=== PATIENT | female | born 1990 | race African-American/Black ===

== ENCOUNTER 2022-07-04 13:20 | Emergency (ER) | payer OTHER, SELFPAY ==
[2022-07-04] VITALS (10 sets, daily range): BP systolic 116–148; BP diastolic 58–85; PULSE 102–123; RESP 20–28; TEMP 37.7; O2SAT 96–100; BMI 44.6
--- NOTE | 2022-07-04 13:34 | DI.RAD.S_ITS ---
PROCEDURE: XR CHEST 1V INDICATIONS: suspected sepsis TECHNIQUE: One view of the chest was acquired. COMPARISON: None. FINDINGS: Surgical changes and devices: None. Lungs and pleura: Lungs are clear. No pleural effusions or pneumothorax. Mediastinum: Mediastinal contours appear normal. There is mild cardiomegaly. Bones and chest wall: No suspicious bony lesions. Overlying soft tissues appear unremarkable. IMPRESSION: Mild cardiomegaly. No acute pulmonary findings. Dictated by: Erlinda Lombardo M.D. on 07/04/2022 at 15:31 Approved by: Erlinda Lombardo M.D. on 07/04/2022 at 15:31
[2022-07-04] MEDS: SODIUM CHLORIDE 0.9% 1,000 ML 1000 ML IV (13:53)
[2022-07-04] MEDS: ONDANSETRON 4 MG/2 ML INJ IV (13:53)
[2022-07-04 13:55] LABS: Add Manual Diff / Slide Review NO; Basophils Absolute Auto 0 /uL (0-100); Basophils Percent Auto 0.3 % (0-2); Eosinophils Absolute Auto 0 /uL (0-450); Eosinophils Percent Auto 0.3 % (2-4); Hematocrit 39.4 % (36-46); Hemoglobin 12.5 g/dL (12.0-16.0); Lymphocytes Absolute Auto 900 /uL (1100-4500); Lymphocytes Percent Auto 11.9 % (25-40); Mean Corpuscular HGB Conc 31.8 % (30-36); Mean Corpuscular Hemoglobin 26.9 PG (26-34); Mean Corpuscular Volume 84.8 fL (80-100); Monocytes Absolute Auto 300 /uL (0-900); Monocytes Percent Auto 3.4 % (3-14); Neutrophils Absolute Auto 6500 /uL (1500-7000); Neutrophils Percent Auto 84.1 % (50-75); Platelet Count 252 X10^3/uL (150-400); Red Blood Cell Count 4.64 X10^6/uL (4.0-5.2); Red Cell Distribution Width 14.1 % (11.6-14.8); White Blood Cell Count 7.8 X10^3/uL (4.5-11.0)
--- NOTE | 2022-07-04 14:03 | DI.US.S_ITS ---
PROCEDURE: US PELVIC COMPLETE INDICATIONS: LEFT LOWER QUADRANT PAIN TECHNIQUE: Real-time scanning was performed of the pelvic organs, with image documentation. Additional endovaginal scanning was necessary due to incomplete visualization of the adnexal and endometrial structures by transabdominal scanning. COMPARISON: None. FINDINGS: Uterus: Uterus is anteverted and normal in size at 7.9 x 4.4 x 3.7 cm. The myometrium is homogeneous. The endometrium measures 4.9 mm combined thickness. Normal vascular flow. Few nabothian cysts are seen in the cervix. Ovaries: The right ovary measures 3.2 x 1.8 x 2.4 cm, with a calculated ovarian volume of seven cc. The left ovary measures 2.4 x 2.0 x 1.1 cm, with a calculated ovarian volume of 2.6 cc. The right ovary contains an involuting dominant follicle measuring up to 1.8 cm, probably a corpus luteum. There is a unilocular thin-walled paraovarian cyst in the right adnexa measuring 1.7 cm. The left ovary has a normal follicular echotexture. There is a thin-walled unilocular cyst in the left adnexa measuring 1.9 cm. Less than 12 follicles can be seen in each ovary. No adnexal masses are seen. Other: No pathologic free abdominal or pelvic fluid. IMPRESSION: 1. Incidental bilateral, simple appearing adnexal paraovarian cysts. 2. No explanation for left lower quadrant pain. We strive to produce accurate, complete, and clear reports of imaging services. To assist us in improving patient care, this report was composed using standard report templates and voice recognition software. Therefore, it may contain abnormal punctuation, insertions and/or omissions. Occasional wrong-word or sound-alike substitutions may occur. Though we review the report and make efforts to correct it, we do recommend that the report be read carefully in proper context to recognize any text inaccuracies. Dictated by: Louise Murphy M.D. on 07/04/2022 at 15:42 Approved by: Louise Murphy M.D. on 07/04/2022 at 15:45
[2022-07-04 14:06] LABS: INR 1.1 (0.9-1.3); Prothrombin Time 12.6 SECONDS (10.1-12.7)
[2022-07-04 14:09] LABS: PTT Partial Thromboplastin Tim 27 SECONDS (26-36)
[2022-07-04] MEDS: KETOROLAC 30 MG/ML VIAL 15 MG IV (14:14)
[2022-07-04 14:16] LABS: Alanine Aminotransferase 18 IU/L (<35); Alkaline Phosphatase 87 U/L (38-126); Aspartate Aminotransferase 22 IU/L (14-36); BUN Creatinine Ratio 17.2 (6-22); Bilirubin Total 0.6 mg/dL (0.2-1.3); Blood Urea Nitrogen 11 mg/dL (7-17); Calcium 9.2 mg/dL (8.4-10.2); Carbon Dioxide 22 mmol/L (22-32); Chloride 102 mmol/L (98-107); Estimated Glomerular Filt Rate > 60 mL/min (>60); Glucose 103 mg/dL (70-100); Lipase 54 U/L (23-300); Sodium 138 mmol/L (137-145); Total Protein 8.5 g/dL (6.3-8.2)
[2022-07-04 14:18] LABS: Lactate (Lactic Acid) 1.7 mmol/L (0.7-2.1)
[2022-07-04 14:33] LABS: Procalcitonin 0.05 ng/mL (<0.5)
[2022-07-04 15:11] LABS: Influenza A - CEPHEID Flu A NEGATIVE (NEGATIVE); Influenza B - CEPHEID Flu B NEGATIVE (NEGATIVE); Respiratory Syncytial Virus Negative (Negative)
[2022-07-04 15:23] LABS: Bacteria Urine None Seen; Culture Indicated Urine Specimen Cultured; RBC Urine 1-5/HPF (0-5/HPF); Squamous Epithelial Cell Urine 0-1 /HPF (0-5/HPF); WBC Urine 1-5/HPF (0-5/HPF)
--- NOTE | 2022-07-04 16:04 | DI.CT.S_ITS ---
PROCEDURE: CT ABDOMEN PELVIS W CON INDICATIONS: LLQ pain, sepsis TECHNIQUE: After the administration of oral and IV contrast, axial sections were acquired from the lung bases to the pubic symphysis. Coronal and sagittal reformats were performed. For radiation dose reduction, the following was used: automated exposure control, adjustment of mA and/or kV according to patient size. COMPARISON: [facility], CR, XR CHEST 1V, 07/04/2022, 13:38. [facility], US, US PELVIC COMPLETE, 07/04/2022, 14:24. FINDINGS: Image quality: Excellent. Lung bases: Unremarkable. Heart: No significant findings. ABDOMEN: Liver: Unremarkable. Gallbladder: Unremarkable. Biliary ducts: Unremarkable. Pancreas: Unremarkable. Spleen: Unremarkable. Incidental note is made of an accessory splenule along the anterior hilum of the primary spleen. Adrenal Glands: Unremarkable. Kidneys and Ureters: Unremarkable. Stomach and Bowel: In this patient with this given history, scrutiny is given to the sigmoid colon. No significant sigmoid colon abnormality can be seen. No focal left lower quadrant inflammatory change can be seen. No significant colonic abnormality can be seen. No dilated loops of small bowel are seen. The stomach is relatively decompressed. Peritoneum: No abnormal intraperitoneal fluid. No free air. Ventral Wall: No hernia. Abdominal Nodes: No retroperitoneal or mesenteric adenopathy by size criteria. Vessels: Aorta and inferior vena cava are normal in size. PELVIS: Pelvic Organs: The uterus is unremarkable. Cystic lesions are seen of the right ovary, which are better demonstrated by ultrasound. Bladder: Unremarkable. Pelvic Nodes: No enlarged lymph nodes. Miscellaneous: No inguinal hernias are seen. Bones: Bilateral L5 pars defects are seen, without associated L5-S1 anterolisthesis. Mild dextroconvex scoliotic curvature is seen. IMPRESSION: Negative for diverticulitis. No focal left lower quadrant inflammatory change can be seen. Cystic foci can be seen in the right ovary, which are better demonstrated by ultrasound. Additional findings: Accessory splenule Mild dextroconvex scoliotic curvature is seen. Bilateral L5 pars defects Dictated by: Armand Harrison M.D. on 07/04/2022 at 15:39 Approved by: Armand Harrison M.D. on 07/04/2022 at 15:42
[2022-07-04 16:42] LABS: COVID-19 CEPHEID 4-PLEX PCR Negative (Negative)
--- NOTE | 2022-07-04 17:05 | ED.ABDPAIN ---
HPI - Abdominal Pain General Chief Complaint: Fever Stated Complaint: abdominal pain, vomitting, lt ovary pain Time Seen by Provider: 07/04/22 13:30 Source: patient Mode of arrival: Ambulatory History of Present Illness HPI narrative: 32-year-old female nonsmoker without chronic medical history presents with a chief complaint of gradually worsening left lower quadrant pain over the course of the day. She states she went to bed in her normal state of health and felt some beginnings of discomfort in the middle the night but it became increasingly severe over the day. Her pain is worse when she moves and improves with rest. She denies any radiation of the pain nor any history of this pain. She is had no trauma or injury. She is not dizzy nor weak or lightheaded. She has had some nausea, vomiting and diarrhea. She denies recent travel, use of antibiotics, exposure to other ill persons nor bad food. She denies vaginal bleeding or discharge. She had her last menstrual cycle 2 weeks ago and it was slightly light for her. She denies dysuria, frequency or urgency. Related Data Previous Rx's Medication Instructions Recorded hydrocodone 5 mg-acetaminophen 325 1 tab PO Q4-6H PRN pain #10 tabs 07/04/22 mg tablet ketorolac 10 mg tablet 10 mg PO Q6H PRN pain #14 tabs 07/04/22 ondansetron 4 mg disintegrating 4 mg PO TID-QID PRN nausea and 07/04/22 tablet vomiting #10 tabs Allergies Allergy/AdvReac Type Severity Reaction Status Date / Time No Known Drug Allergies Allergy Verified 07/04/22 13:34 Review of Systems Review of Systems Narrative: GENERAL: Denies chills, fatigue, malaise, fever, sweats. HEENT: Denies sinus pain, ear pain, sore throat, difficulty swallowing, dizziness. RESPIRATORY: Denies dyspnea, cough, wheezing, hemoptysis, sputum. CARDIOVASCULAR: Denies chest pain, palpitations, orthopnea, edema, GASTROINTESTINAL: See HPI : Denies dysuria, frequency, incontinence, hematuria, urinary retention. MUSCULOSKELETAL: denies weakness, joint pain, or bony pain SKIN: Denies rash, skin lesions, or other NEUROLOGIC: Denies weakness, headache, numbness, change in speech, confusion, seizures, incoordination. PSYCHIATRIC: No concerning psychosocial issues. 12 point review of systems is negative except for those stated above Patient History Social History Smoking Status: Never smoker Smoking Status: Never smoker alcohol intake frequency: holidays/special occasions only Substance Use Type: does not use Exam Narrative Exam Narrative: GENERAL: [32] year old patient appears stated age. Well-developed patient, in mild distress. HEAD: Atraumatic. Normocephalic. EYES: Pupils equal round and reactive. Extraocular motions intact. No scleral icterus. No injection or drainage. ENT: Nose without bleeding, purulent drainage. Throat without erythema, tonsillar hypertrophy or exudate. Airway patent. NECK: Trachea midline. Non tender CARDIOVASCULAR: Regular rate and rhythm without murmurs, gallops, or rubs. RESPIRATORY: Clear to auscultation. Breath sounds equal bilaterally. No wheezes, rales, or rhonchi. GASTROINTESTINAL: Abdomen soft, left lower quadrant pain on palpation, no guarding, nondistended. EXTREMITIES: No edema or joint tenderness. BACK: Nontender without deformity or crepitance. No flank tenderness. NEURO: AOx3. SKIN: No rash or erythema of visible areas Initial Vital Signs Initial Vital Signs: Vital Signs Temperature 99.9 F H 07/04/22 13:25 Pulse Rate 123 H 07/04/22 13:25 Respiratory Rate 28 H 07/04/22 13:25 Blood Pressure 148/85 H 07/04/22 13:25 Pulse Oximetry 97 07/04/22 13:25 Oxygen Delivery Method 07/04/22 13:25 Course Orders Ordered: ED Orders 07/04/22 13:34 XR chest 1V Stat RT Consult Eval and Treat NOW 07/04/22 13:40 Covid-19 + FLU A/B + RSV - PCR Stat 07/04/22 13:45 Complete Blood Count AUTO DIFF Stat Comprehensive Metabolic Panel Stat Lactate (Lactic Acid) Stat Lipase Stat Partial Thromboplastin Time Stat Procalcitonin Stat Prothrombin Time INR Stat 07/04/22 14:03 US pelvic complete Stat GI Panel (Film Array) Stat 07/04/22 14:10 Blood Culture Stat 07/04/22 14:20 Urine Culture Stat Urine Microscopic Stat 07/04/22 16:04 CT abdomen pelvis w con Stat Ondansetron HCl (Ondansetron 4 Mg/2 Ml Inj) 4 mg IV NOW PRN PRN Reason: Nausea And Vomiting Last Admin: 07/04/22 13:53 Dose: 4 mg Documented By: PARKER Discontinued Medications Sodium Chloride (Normal Saline 0.9%) 1,000 mls @ 1,000 mls/hr IV BOLUS ONE Stop: 07/04/22 14:33 Last Infusion: 07/04/22 15:32 Dose: 0 mls/hr Documented By: Admin: 07/04/22 13:53 Dose: 1,000 mls/hr Documented By: PARKER Ketorolac Tromethamine (Ketorolac 30 Mg/Ml Vial) 15 mg IV NOW ONE Stop: 07/04/22 14:04 Last Admin: 07/04/22 14:14 Dose: 15 mg Documented By: PARKER Reevaluation(s) Reevaluation #1: Significant improvement in symptoms and vital signs after above-stated therapies Vital Signs Vital signs: Vital Signs - 8 hr 07/04/22 13:25 07/04/22 13:28 07/04/22 14:00 Temperature 99.9 F H Pulse Rate 123 H 122 H 122 H Respiratory Rate 28 H Blood Pressure 148/85 H Pulse Oximetry 97 98 98 Oxygen Delivery Method Room Air 07/04/22 14:11 07/04/22 14:11 07/04/22 15:00 Temperature Pulse Rate 111 H 107 H Respiratory Rate 26 H Blood Pressure 121/75 Pulse Oximetry 100 96 Oxygen Delivery Method 07/04/22 15:30 07/04/22 15:32 07/04/22 15:32 Temperature Pulse Rate 109 H 103 H Respiratory Rate 20 Blood Pressure 124/62 Pulse Oximetry 96 96 Oxygen Delivery Method 07/04/22 16:00 07/04/22 16:00 Temperature Pulse Rate 102 H Respiratory Rate 26 H Blood Pressure 122/59 L Pulse Oximetry 98 Oxygen Delivery Method MDM - Abdominal Pain Lab Data Result diagrams: 07/04/22 13:45 07/04/22 13:45 Labs: Lab Results 07/04/22 07/04/22 07/04/22 Range/Units 13:40 13:45 13:45 WBC 7.8 (4.5-11.0) X10^3/uL RBC 4.64 (4.0-5.2) X10^6/uL Hgb 12.5 (12.0-16.0) g/dL Hct 39.4 (36-46) % MCV 84.8 (80-100) fL MCH 26.9 (26-34) PG MCHC 31.8 (30-36) % RDW 14.1 (11.6-14.8) % Plt Count 252 (150-400) X10^3/uL Neut % (Auto) 84.1 H (50-75) % Lymph % (Auto) 11.9 L (25-40) % Henderson % (Auto) 3.4 (3-14) % Eos % (Auto) 0.3 L (2-4) % Baso % (Auto) 0.3 (0-2) % Neut # (Auto) 6500 (5153-7784) /uL Lymph # (Auto) 900 L (2999-6171) /uL Henderson # (Auto) 300 (0-900) /uL Eos # (Auto) 0 (0-450) /uL Baso # (Auto) 0 (0-100) /uL PT 12.6 (10.1-12.7) SECONDS INR 1.1 (0.9-1.3) APTT 27 (26-36) SECONDS Sodium (137-145) mmol/L Potassium (3.4-5.1) mmol/L Chloride (98-107) mmol/L Carbon Dioxide (22-32) mmol/L BUN (7-17) mg/dL Creatinine (0.52-1.04) mg/dL Estimated GFR (>60) mL/min BUN/Creatinine Ratio (6-22) Glucose (70-100) mg/dL Lactate (0.7-2.1) mmol/L Calcium (8.4-10.2) mg/dL Total Bilirubin (0.2-1.3) mg/dL AST (14-36) IU/L ALT (<35) IU/L Alkaline Phosphatase (38-126) U/L Total Protein (6.3-8.2) g/dL Lipase (23-300) U/L Procalcitonin (<0.5) ng/mL Urine RBC (0-5/HPF) Urine WBC (0-5/HPF) Ur Squamous Epith Cells (0-5/HPF) Urine Bacteria (None) Ur Culture Indicated? SARS-CoV-2 (PCR) Negative (Negative) Influenza A (RT-PCR) Flu a negative (NEGATIVE) Influenza B (RT-PCR) Flu b negative (NEGATIVE) RSV (PCR) Negative (Negative) 07/04/22 07/04/22 07/04/22 Range/Units 13:45 13:45 14:20 WBC (4.5-11.0) X10^3/uL RBC (4.0-5.2) X10^6/uL Hgb (12.0-16.0) g/dL Hct (36-46) % MCV (80-100) fL MCH (26-34) PG MCHC (30-36) % RDW (11.6-14.8) % Plt Count (150-400) X10^3/uL Neut % (Auto) (50-75) % Lymph % (Auto) (25-40) % Henderson % (Auto) (3-14) % Eos % (Auto) (2-4) % Baso % (Auto) (0-2) % Neut # (Auto) (3769-8491) /uL Lymph # (Auto) (5578-1077) /uL Henderson # (Auto) (0-900) /uL Eos # (Auto) (0-450) /uL Baso # (Auto) (0-100) /uL PT (10.1-12.7) SECONDS INR (0.9-1.3) APTT (26-36) SECONDS Sodium 138 (137-145) mmol/L Potassium 4.0 (3.4-5.1) mmol/L Chloride 102 (98-107) mmol/L Carbon Dioxide 22 (22-32) mmol/L BUN 11 (7-17) mg/dL Creatinine 0.64 (0.52-1.04) mg/dL Estimated GFR > 60 (>60) mL/min BUN/Creatinine Ratio 17.2 (6-22) Glucose 103 H (70-100) mg/dL Lactate 1.7 (0.7-2.1) mmol/L Calcium 9.2 (8.4-10.2) mg/dL Total Bilirubin 0.6 (0.2-1.3) mg/dL AST 22 (14-36) IU/L ALT 18 (<35) IU/L Alkaline Phosphatase 87 (38-126) U/L Total Protein 8.5 H (6.3-8.2) g/dL Lipase 54 (23-300) U/L Procalcitonin 0.05 (<0.5) ng/mL Urine RBC 1-5/hpf (0-5/HPF) Urine WBC 1-5/hpf (0-5/HPF) Ur Squamous Epith Cells 0-1 /hpf (0-5/HPF) Urine Bacteria None seen (None) Ur Culture Indicated? Specimen cultured SARS-CoV-2 (PCR) (Negative) Influenza A (RT-PCR) (NEGATIVE) Influenza B (RT-PCR) (NEGATIVE) RSV (PCR) (Negative) Point of care testing: Point of Care Testing Test Results Negative Urine Dip Bedside Urine Glucose Negative Bedside Urine Bilirubin - Negative Bedside Urine Ketone - Negative Urine Specific [place] 1.025 Bedside Urine Occult Blood + Bedside Urine pH 6.0 Bedside Urine Protein +/- 15 Bedside Urine Urobilinogen - Negative Bedside Urine Nitrite - Negative Bedside Urine Leukocytes - Negative Esterase Imaging Data US - [employer] ATTENDANT: Radiologist's Impression: [address] [address] Ultrasound Report Signed Patient: Marina Centeno MR#: [id number] : 1990 Acct:[id number] Age/Sex: 32 / F Date of Service: 07/04/22 Loc: ED Accession Number: [id number] ?? Procedure: US pelvic complete Ordering Provider: Du Cobos D.O. PROCEDURE:? US PELVIC COMPLETE ? INDICATIONS:? LEFT LOWER QUADRANT PAIN ? TECHNIQUE:? Real-time scanning was performed of the pelvic organs, with image documentation.? Additional endovaginal scanning was necessary due to incomplete visualization of the adnexal and endometrial structures by transabdominal scanning.? ? COMPARISON:? None. ? FINDINGS:? ?? Uterus:? Uterus is anteverted and normal in size at 7.9 x 4.4 x 3.7 cm. The myometrium is homogeneous. ? The endometrium measures 4.9 mm combined thickness.? Normal vascular flow. ?Few nabothian cysts are seen in the cervix. ? Ovaries:? The right ovary measures 3.2 x 1.8 x 2.4 cm, with a calculated ovarian volume of seven cc. The left ovary measures 2.4 x 2.0 x 1.1 cm, with a calculated ovarian volume of 2.6 cc.? The right ovary contains an involuting dominant follicle measuring up to 1.8 cm, probably a corpus luteum.? There is a unilocular thin-walled paraovarian cyst in the right adnexa measuring 1.7 cm.? The left ovary has a normal follicular echotexture.? There is a thin-walled unilocular cyst in the left adnexa measuring 1.9 cm.? Less than 12 follicles can be seen in each ovary.? No adnexal masses are seen. ? Other:? No pathologic free abdominal or pelvic fluid. ? ? IMPRESSION:? ? 1. Incidental bilateral, simple appearing adnexal paraovarian cysts. ? 2. No explanation for left lower quadrant pain.? We strive to produce accurate, complete, and clear reports of imaging services. To assist us in improving patient care, this report was composed using standard report templates and voice recognition software. Therefore, it may contain abnormal punctuation, insertions and/or omissions. Occasional wrong-word or sound-alike substitutions may occur. Though we review the report and make efforts to correct it, we do recommend that the report be read carefully in proper context to recognize any text inaccuracies. ? ? Dictated by: Louise Murphy M.D. on 07/04/2022 at 15:42 ? ? Approved by: Louise Murphy M.D. on 07/04/2022 at 15:45 ? CT scan - abdomen/pelvis: Radiologist's Impression: Marina Centeno??32??F??1990 ? Allergy/Adv: No Known Drug Allergies Close Abdomen/Pelvis CT (Signed) Armand Harrison - 07/04/22 Pelvis Ultrasound (Signed) Louise Murphy - 07/04/22 Chest X-Ray (Signed) Erlinda Lombardo - 07/04/22 Launch?[address] [address] [address] Scan Report Signed Patient: Marina Centeno MR#: [id number] : 1990 Acct:[id number] Age/Sex: 32 / F Date of Service: 07/04/22 Loc: ED Accession Number: [id number] ?? Procedure: CT abdomen pelvis w con Ordering Provider: Du Cobos D.O. PROCEDURE:? CT ABDOMEN PELVIS W CON ? INDICATIONS:? LLQ pain, sepsis ? TECHNIQUE:? After the administration of oral and IV contrast, axial sections were acquired from the lung bases to the pubic symphysis.? Coronal and sagittal reformats were performed.? For radiation dose reduction, the following was used:? automated exposure control, adjustment of mA and/or kV according to patient size. ? COMPARISON:? [facility], CR, XR CHEST 1V, 07/04/2022, 13:38.? [facility], US, US PELVIC COMPLETE, 07/04/2022, 14:24. ? FINDINGS:? Image quality:? Excellent.? ? Lung bases:? Unremarkable.? ? Heart:? No significant findings. ? ? ABDOMEN: Liver:? Unremarkable.? ? Gallbladder:? Unremarkable.? ? Biliary ducts:? Unremarkable.? ? Pancreas:? Unremarkable.? ? Spleen:? Unremarkable.? ? Incidental note is made of an accessory splenule along the anterior hilum of the primary spleen. Adrenal Glands:? Unremarkable.? ? Kidneys and Ureters:? Unremarkable.? ? ? Stomach and Bowel: In this patient with this given history, scrutiny is given to the sigmoid colon.? No significant sigmoid colon abnormality can be seen.? No focal left lower quadrant inflammatory change can be seen. No significant colonic abnormality can be seen. No dilated loops of small bowel are seen. The stomach is relatively decompressed. Peritoneum:? No abnormal intraperitoneal fluid.? No free air.? ? Ventral Wall: ? No hernia.? Abdominal Nodes:? No retroperitoneal or mesenteric adenopathy by size criteria.? Vessels:? Aorta and inferior vena cava are normal in size.? ? PELVIS: Pelvic Organs:? The uterus is unremarkable.? Cystic lesions are seen of the right ovary, which are better demonstrated by ultrasound. Bladder:? Unremarkable.? ? Pelvic Nodes: No enlarged lymph nodes.? Miscellaneous: No inguinal hernias are seen. ? ? ? Bones:? Bilateral L5 pars defects are seen, without associated L5-S1 anterolisthesis.? Mild dextroconvex scoliotic curvature is seen.? ? ? IMPRESSION:? Negative for diverticulitis.? No focal left lower quadrant inflammatory change can be seen. ? Cystic foci can be seen in the right ovary, which are better demonstrated by ultrasound. ? ? Additional findings:? Accessory splenule Mild dextroconvex scoliotic curvature is seen.? Bilateral L5 pars defects ? Dictated by: Armand Harrison M.D. on 07/04/2022 at 15:39 ? ? MDM Narrative Medical decision making narrative: CC: Left lower quadrant pain, nausea, vomiting and diarrhea Complicating co-morbidities: None known Data collected from: Patient Medical records reviewed: No other charts in our EMR Differential considered, but not limited to: UTI, kidney stone, bowel obstruction, ovarian cyst, ovarian torsion, gastroenteritis versus other Exam documented above, pertinent findings include: Initially tachycardic and obviously in pain, this pain is reproducible in the left lower quadrant. Lab Test results independently reviewed as above. Pertinent findings: Labs are very reassuring without significant abnormalities. She has no elevated white blood cell count and stable H&H, UA and urine preg negative Imaging studies independently reviewed: No significant findings on chest x-ray, pelvic ultrasound or CT of abdomen and pelvis with IV contrast Treatments: IV fluids, ketorolac and Zofran Re-evaluations: As noted above patient had near complete resolution of symptoms and improvement of vital signs with the above-stated therapies Discussion: Patient with gradually worsening left lower quadrant pain today. She is had nausea, vomiting and diarrhea as well. Her pain is worse when she moves and improves with rest, there is no colicky nature to the pain. She denies any urinary or vaginal complaints such as bleeding or discharge. She has no sign of a UTI and is not . Labs are very reassuring. No evidence of ovarian abnormality or other explanation for pain on CT. Pain is well controlled, she is well hydrated and tolerating orals. Diagnosis: Disposition: see below, along with detailed discharge instructions that have been reviewed with patient as well as indications for ED re-evaluation and additional outpatient follow up Discharge Plan Departure Patient Disposition: Home Clinical Impression: Abdominal pain, acute, left lower quadrant Instructions: DI for Abdominal Pain-Adult Activity Restrictions/Additional Instructions: *You have been diagnosed with [left lower quadrant pain. As we discussed your history and physical exam is reassuring and there is no significant abnormality noted in the urine, lab work, ultrasound or CT scan. No evidence of a bowel obstruction, ovarian abscess or torsion, urine infection or other significant abnormality that requires a specific or immediate intervention] *What to do: *Please continue to take your regular medications as directed. [x ] New medication prescriptions sent to your pharmacy: [[facility] [ ] New medication written as a paper prescription [ ] No new medications given *Please follow up with your primary care provider in 2-3 days, call for an appointment. Let them know you were seen in the Emergency Department and that we ask that you be seen in follow up. We will electronically transmit a record of today's note if your PCP is in our system *Return to Emergency Department if you should have any new, worsening or concerning symptoms, such as [fever greater than 101 F, shaking chills, worsening pain, persistent vomiting or other bothersome symptoms] Prescriptions: New hydrocodone-acetaminophen 5-325 mg tablet 1 tab PO Q4-6H PRN (Reason: pain) Qty: 10 0RF ketorolac 10 mg tablet 10 mg PO Q6H PRN (Reason: pain) Qty: 14 0RF ondansetron 4 mg tablet,disintegrating 4 mg PO TID-QID PRN (Reason: nausea and vomiting) Qty: 10 0RF Referrals: [facility] [Primary Care Provider] - Stand Alone Forms: Patient Portal/API
[2022-07-08 15:44] LABS: Albumin 4.4 g/dL (3.5-5.0); Albumin Globulin Ratio 1.1 (1.0-2.8); Globulin 4.1 g/dL (1.7-4.1); HEMOLYSIS 15 (0-50)
== END 2022-07-04 17:18 | disposition home or self-care (01) ==
PROVIDERS: Emergency Provider Emergency Medicine
DX: R10.32 Left lower quadrant pain (principal); R11.2 Nausea with vomiting, unspecified; R19.7 Diarrhea, unspecified; Z20.822 Contact with and (suspected) exposure to COVID-19
CPT/HCPCS: 0241U; 36415; 71045; 74177; 76830; 76856; 80053; 81003; 81015; 81025; 83605; 83690; 84145; 85025; 85610; 85730; 87040; 87086; 93975; 96361; 96374; 96375; 99284; J1885; J2405; Q9967